=== PATIENT | female | born 1985 | race Caucasian/White ===

== ENCOUNTER → 2017-10-22 | Outpatient (CLI) | payer BC ==
[~2017-10-22] MED LIST: ANUSOL-HC25 MG RC
== END | disposition home or self-care (01) ==
LOC: US 08:28
DX: N63.0 Unspecified lump in unspecified breast (principal)

== ENCOUNTER → 2022-06-07 | Outpatient (CLI) | payer BC | END | disposition home or self-care (01) | LOC: RAD 08:00 | PROVIDERS: ATTEND Surgery | DX: Z01.818 Encounter for other preprocedural examination (principal) ==

== ENCOUNTER → 2022-11-22 | Outpatient (CLI) | payer BC | END | disposition home or self-care (01) | LOC: US 01:14 | PROVIDERS: ATTEND Nurse Practitioner Family | DX: R22.1 Localized swelling, mass and lump, neck (principal) ==